=== PATIENT | male | born 2005 | race Caucasian/White ===

== ENCOUNTER 2024-01-13 17:35 | Emergency (ER) | payer BC, SELFPAY ==
[2024-01-13 17:37] VITALS: BP 136/67; PULSE 75; RESP 18; TEMP 36.4; O2SAT 100; BMI 21.4
[2024-01-13 18:22] LABS: Absolute Lymphocyte Count 2.44 X10^3/uL (0.83-4.51); Absolute Neutrophil Count 3.9 X10^3/uL (2.0-7.7); Basophil# 0.05 X10^3/uL; Basophil% 0.7 % (0-1); Eosinophil# 0.16 X10^3/uL; Eosinophils% 2.2 % (0-5); Hematocrit 44.1 % (40-54); Hemoglobin 15.2 g/dL (13.0-16.5); Lymphocyte # 2.44 X10^3/ul (0.83-4.51); Lymphocyte % 34.2 % (19-41); Mean Corp Hgb Conc 34.5 g/dL (32-36); Mean Corpuscular Hgb 29.2 pg (27.0-32.0); Mean Corpuscular Volume 84.8 fL (80-94); Mean Platelet Vol. 9.4 fl (6.2-12.0); Monocyte# 0.55 X10^3/uL; Monocyte% 7.7 % (0-10); NRBC Flagged by Analyzer 0 % (0-5); Neutrophil # 3.92 X10^3/uL (2.7-7.7); Neutrophil % 55.1 % (47-70); Platelet Count 275 K/mm3 (150-450); RBC Distribution Width CV 11.9 % (11.6-14.6); RBC Distribution Width SD 35.9 fl (35.1-43.9); White Blood Count 7.1 K/mm3 (4.4-11.0)
[2024-01-13 18:45] LABS: ALB/GLOB Ratio 1.2 RATIO (0.9-2.4); AST(SGOT) 21 U/L (15-37); Alanine Aminotransfer ALT/SGPT 24 U/L (16-61); Albumin, Serum 4.2 g/dL (3.2-5.0); Alkaline Phosphatase 91 U/L (45-117); Anion Gap 4 (5-15); BUN 11 mg/dL (7-18); BUN/Creat Ratio 12.2 RATIO (10-20); Calcium,Total 9.2 mg/dL (8.5-10.1); Chloride 107 mmol/L (98-107); EST Glomerular Filtration Rate 114 mL/min (>60); Est Glom Filt Rate - Afr Amer 138 mL/min (>60); Estimated Creatinine Clearance 130.44 ml/min; Globulin 3.4 g/dL (2.2-4.2); Glucose 99 mg/dL (74-106); Potassium 4.1 mmol/L (3.5-5.1); Protein, Total 7.6 g/dL (6.4-8.2); Sodium Level 140 mmol/L (136-145)
[2024-01-13 19:36] VITALS: BP 127/72; PULSE 74; RESP 16; O2SAT 95
[2024-01-13 19:39] LABS: Color, Urine Yellow (Yellow); Glucose, Dipstick Normal (Normal); Ketone-Dipstick Negative (Negative); Leukocyte Esterase-Dipstick 25 /ul (Negative); Mucous, Urine 0 SEEN /hpf (<or=2+); Nitrite-Dipstick Negative (Negative); Occult Blood-Urine Negative /ul (Negative); Protein-Dipstick 15 mg/dl (Negative); Red Blood Cells-Urine 0 SEEN /hpf (0-5); Urine Bilirubin Dipstick Negative (Negative); Urine Clarity Cloudy (Clear); Urine Urobilinogen Normal (Normal)
[2024-01-13 19:51] LABS: Amorphous Sediment 2+; Squamous Epithelial Cells - UA 0-5 SEEN /hpf (0-5); White Blood Cells 0-5 SEEN /hpf (0-5)
[2024-01-13 19:52] LABS: Bacteria 1+ /hpf (None Seen)
[2024-01-13 20:30] VITALS: BP 127/72; PULSE 74; RESP 16; TEMP 36.3; O2SAT 95
--- NOTE | 2024-01-13 23:42 | EDS_ITS ---
HPI HPI - GI History of Present Illness Chief Complaint: Abd Pain Narrative Narrative: 18-year-old male presenting with left upper quadrant pain for the last 2 days. Denies nausea, vomiting, diarrhea, constipation. Is making normal urine bowel movements. He states he typically drinks about a gallon of water a day during the week and on the weekend he drinks a little bit less. He admits to typical fast food diet this is a teenager. Denies fevers or chills. Denies urinary complaints. Patient denies black or bloody stools. Denies cough, shortness of breath. PFSH PFSH Home Medications NK 01/13/24 [History Last Taken Unknown] Allergy/AdvReac Type Severity Reaction Status Date / Time No Known Allergies Allergy Verified 01/13/24 17:36 Social History Smoking Status: Never smoker ROS ROS ED Constitutional Constitutional ED: Denies chills, fever(s) or sweats Eyes Eyes: Denies blurry vision or change in vision ENT ENT ED: Denies ear pain or sore throat Cardiovascular Cardiovascular: Denies chest pain, palpitations or racing heartbeat Respiratory/Chest Respiratory/Chest: Denies cough, dyspnea or sputum Gastrointestinal Gastrointestinal: Reports abdominal pain; Denies constipation, diarrhea, nausea or vomiting Genitourinary Genitourinary ED: Denies dysuria, hematuria or urinary frequency Musculoskeletal Musculoskeletal: Denies arthralgias, myalgias or neck pain Integumentary Denies abscess, Abrasions or rash Neurologic Neurologic: Denies headache(s), paresthesias or weakness Psychiatric Psychiatric: Denies anxiety, depression, suicidal ideation or suicidal thoughts Endocrine Endocrinology: Denies polydipsia or polyuria EXAM Physical Exam Const Vital Signs: 01/13/24 17:37 01/13/24 19:36 01/13/24 20:30 Temperature 97.6 F L 97.4 F L Temperature Source Temporal Pulse Rate 75 74 74 Respiratory Rate 18 16 16 Blood Pressure 136/67 H 127/72 H 127/72 H Blood Pressure Mean 90 90 90 Pulse Ox 100 95 95 Oxygen Delivery Method Room Air Positive well nourished General Appearance ED: NAD; Negative for pallor HEENT Reports moist mucous membranes normocephalic and atraumatic Eyes PERRL and EOMs intact bilaterally Resp normal respiratory effort Cardio regular rate and regular rhythm GI non-tender, non-distended and no masses Palpation: soft; Negative for hepatomegaly or splenomegaly Back/Spine no CVA tenderness Neuro CN's II-XII intact bilaterally Sensorium / Orientation: alert Psych mental status grossly normal Skin General Skin Exam: Negative for jaundice or pallor MDM MDM MDM Narrative Medical decision making narrative: Patient with left upper quadrant pain for couple of days. I suspect this is likely gastrointestinal. I do not believe he has any splenic issues although the patient had been using [employer] and was concerned for this. He has no mass here and he is not significantly tender over the spleen. Screening lab work was obtained and his CBC, CMP are normal. Urinalysis negative for infection and occult blood. Patient declines analgesia or antiemetics. I did offer KUB to look for obstructive pattern or abnormal bowel gas pattern. He does not feel he needs this. I do not believe needs a CT given his lab work was normal and exam is pretty benign. His father did arrive and had some questions which were answered and I still do not believe he needs anything. Patient will be discharged stable condition. Impression: 1. Abdominal pain Lab Data Attestation: I reviewed the patient's lab results. Labs: Laboratory Results - last 24 hr 01/13/24 01/13/24 18:15 19:34 WBC 7.1 RBC 5.20 Hgb 15.2 Hct 44.1 MCV 84.8 MCH 29.2 MCHC 34.5 RDW Std Deviation 35.9 RDW Coeff of Josefina 11.9 Plt Count 275 MPV 9.4 Immature Gran % (Auto) 0.100 Neut % (Auto) 55.1 Lymph % (Auto) 34.2 [place] % (Auto) 7.7 Eos % (Auto) 2.2 Baso % (Auto) 0.7 Absolute Neuts (auto) 3.9 Absolute Lymphs (auto) 2.44 Nucleated RBC % 0 Sodium 140 Potassium 4.1 Chloride 107 Carbon Dioxide 29.0 Anion Gap 4 L BUN 11 Creatinine 0.90 Estim Creat Clear Calc 130.44 Est GFR (MDRD) Af Amer 138 Est GFR (MDRD) Non-Af 114 BUN/Creatinine Ratio 12.2 Glucose 99 Calcium 9.2 Total Bilirubin 0.40 AST 21 ALT 24 Alkaline Phosphatase 91 Total Protein 7.6 Albumin 4.2 Globulin 3.4 Albumin/Globulin Ratio 1.2 Urine Color Yellow Urine Clarity Cloudy Urine pH 7.0 Ur Specific [place] 1.010 Urine Protein 15 H Urine Glucose (UA) Normal Urine Ketones Negative Urine Occult Blood Negative Urine Nitrite Negative Urine Bilirubin Negative Urine Urobilinogen Normal Ur Leukocyte Esterase 25 H Urine RBC 0 SEEN Urine WBC 0-5 SEEN Ur Squamous Epith Cells 0-5 SEEN Amorphous Sediment 2+ Urine Bacteria 1+ Urine Mucus 0 SEEN Discharge Plan Triage Chief Complaint: Abd Pain ED Provider: Robert Sykes Dx/Rx/DC Orders Instructions: ED Abdominal Pain Unkn Cause Male... Prescriptions: No Action NK Primary Care Provider: Care Physician,No Primary Disposition Disposition: Home, Self Care Discharge Date/Time: 01/13/24 20:31
== END 2024-01-13 20:31 | disposition home or self-care (01) ==
PROVIDERS: Emergency Provider Student in an Organized Health Care Education/Training Program; Visit Provider Student in an Organized Health Care Education/Training Program
DX: R10.12 Left upper quadrant pain (principal)
CPT/HCPCS: 80053; 81001; 85025; 87086; 99282; A4216